=== PATIENT | female | born 1955 | race Caucasian/White ===

== ENCOUNTER 2016-06-19 21:51 | Emergency (ER) | payer OTHER ==
[~2016-06-19 21:51] MED LIST: ALDACTONE50 MG PO; APAP/HYDROCODON1 T13 PO; ASPIRIN325 MG PO; ATIVAN0.5 M1 PO; BG MC; CHL4 PO; CHOLECALCIFEROL; CLOPIDOGREL75 M1 PO; COL100 PO; D-20001 TAB PO; ECO81 PO; ELA10 PO; FER300 PO; FERROUS SULFAT325 M2 PO; FLAGYL500 MG PO; FLOVENT HF0.11 MG/A1 IH; FUROSEMIDE20 MG PO; GLU500 PO; HYD25 PO; IBUPROFEN; IBUPROFEN400 MG PO; IPRATROPIUM BROM3 M2 HHN; LAC PO; LACTULOSE10 GM/152 PO; LEVAQUIN250 MG PO; LEVAQUIN750 MG PO; LEVAQUIN750 MG/150 IV; LIPI10 PO; LIPITOR80 MG PO; LISINOPRIL/HCTZ1 TA2 PO; LISINOPRIL10 MG PO; LOP50 PO; LORAZEPAM0.5 MG PO; METFORMIN HCL500 MG PO; METHOCARBAMOL750 MG PO; METOPROLOL SUCC25 M1 PO; METOPROLOL TART25 M1 PO; MOTRIN800 MG PO; NAPROXEN SODIU PO; NATURAL IRON65 MG; NEU300 PO; NITROGLYCERIN; NITROSTAT0.4 MG SL; NORCO1 TA2 PO; OMEPRAZOLE DR20 M1 PO; OMEPRAZOLE40 M1 PO; PANTOPRAZOLE SO40 M1 PO; PEGASYS180 MCG/0. MR; PLA75 PO; POTASSIUM CHLO10 MEQ PO; PREDNISONE20 MG PO; PRILOSEC20 MG PO; PROMETHAZI6.25 MG/5 PO; PYR100 PO; RIBAVIRIN200 M1 PO; ROBAXIN-750750 MG PO; SING10 PO; SINGULAIR10 MG PO; SPIRONOLACTONE50 MG PO; THERAGRAN-M1 TA4 PO; TUSSIONEX PENN480 ML; VIT D; VITAMIN C500 M4 PO; VITAMIN D32000 I2 PO; ZEGERID 20 MG-11 CAP PO; ZES10 PO; ZESTRIL5 MG PO; ZOS2I IV; [UNRECOGNIZED DRUG - OTHER] PO
[2016-06-20 00:27] LABS: UA SPECIFIC GRAVITY <=1.005 (1.005-1.035); microscopic required? YES; urine erythrocyte NEGATIVE (NEGATIVE)
[2016-06-20 00:43] LABS: CALCIUM 8.7 mg/dL (8.5-10.1); CARBON DIOXIDE 31.1 mmol/L (21-32); CREATININE SERUM 1.4 mg/dL (0.6-1.0); POTASSIUM SERUM 3.7 mmol/L (3.5-5.1)
[2016-06-20 00:47] LABS: ALBUMIN 3.6 g/dL (3.4-5.0); BILIRUBIN TOTAL 0.5 mg/dL (0.20-1.00); TOTAL PROTEIN, SERUM 8.1 g/dL (6.4-8.2)
[2016-06-20 02:08] LABS: BASOPHIL % 0.5 % (0-2); PLATELET COUNT 194 x10^3mcL (130-400)
[2016-06-20 02:09] LABS: RED CELL DISTRIBUTION WIDTH 19.1 % (11.5-14.5)
[2016-06-20 03:01] VITALS: BP 102/71
== END 2016-06-20 03:01 | disposition home or self-care (01) ==
LOC: ED 21:51
PROVIDERS: Emergency Medicine
DX: J06.9 Acute upper respiratory infection, unspecified (principal); M79.1 Myalgia; J44.9 Chronic obstructive pulmonary disease, unspecified; I10 Essential (primary) hypertension
CPT/HCPCS: J0696

== ENCOUNTER 2016-07-02 15:57 | Emergency (ER) | payer OTHER ==
[~2016-07-02] VITALS: Ht 154.9 cm; Wt 76.8 kg
[2016-07-02 17:15] VITALS: BP 131/78
== END 2016-07-02 17:15 | disposition home or self-care (01) ==
LOC: ED 15:57
DX: M25.561 Pain in right knee (principal); J45.909 Unspecified asthma, uncomplicated; K21.9 Gastro-esophageal reflux disease without esophagitis; J44.9 Chronic obstructive pulmonary disease, unspecified; N18.9 Chronic kidney disease, unspecified; Z88.5 Allergy status to narcotic agent; Z88.6 Allergy status to analgesic agent

== ENCOUNTER → 2016-07-09 | Outpatient (CLI) | payer OTHER | END | disposition home or self-care (01) | LOC: CT 10:30 | PROC: BW211ZZ Computerized Tomography (CT Scan) of Abdomen and Pelvis using Low Osmolar Contrast (ICD-10-PCS; principal; 2016-07-09) | DX: K25.9 Gastric ulcer, unspecified as acute or chronic, without hemorrhage or perforation (principal); K29.50 Unspecified chronic gastritis without bleeding | CPT/HCPCS: A9698; Q9967 ==

== ENCOUNTER 2016-07-29 13:38 | Inpatient (IN) | payer OTHER ==
[~2016-07-29] VITALS: Ht 154.9 cm; Wt 75.7 kg
[2016-07-29 15:23] LABS: BASOPHIL % 0.3 % (0-2); PLATELET COUNT 172 x10^3mcL (130-400)
[2016-07-29 15:26] LABS: RED CELL DISTRIBUTION WIDTH 18.1 % (11.5-14.5)
[2016-07-29 15:32] LABS: CALCIUM 9.1 mg/dL (8.5-10.1); CARBON DIOXIDE 25.6 mmol/L (21-32); CREATININE SERUM 1.5 mg/dL (0.6-1.0)
[2016-07-29 15:38] LABS: ALBUMIN 3.7 g/dL (3.4-5.0); BILIRUBIN TOTAL 0.64 mg/dL (0.20-1.00)
[2016-07-29 15:39] LABS: TOTAL PROTEIN, SERUM 8.4 g/dL (6.4-8.2)
[2016-07-29] MEDS ORDERED: GLUCOPHAGE XR500 MG PO (20:19)
[2016-07-29] MEDS ORDERED: ENALAPRIL MALE2.5 MG PO (20:20)
[2016-07-29] MEDS ORDERED: VITAMIN B121000 MCG PO (20:23)
[2016-07-29] MEDS ORDERED: CALCIUM 500 MG1 EAC1 PO (20:24)
[2016-07-29] MEDS ORDERED: PYR50 PO (20:24)
[2016-07-29 20:59] VITALS: BP 117/76
[2016-07-29 21:00] LABS: MAGNESIUM 2.2 mg/dL (1.8-2.4); PHOSPHOROUS 4.5 mg/dL (2.5-4.9)
[2016-07-29 21:02] LABS: CHOLESTEROL/HDL RATIO 1.7
[2016-07-29 21:09] LABS: FREE T4 1.14 ng/dL (0.76-1.46); FREE THYROXINE INDEX 3.9 ug/dL (1.4-4.5); T3 TOTAL 1.49 ng/mL
[2016-07-29] MEDS ORDERED: PLA75 PO (23:40)
[2016-07-29] MEDS ORDERED: ASPIRIN325 MG PO (23:41)
[2016-07-30 05:26] VITALS: BP 102/63
[2016-07-30 05:55] LABS: BASOPHIL % 0.1 % (0-2); PLATELET COUNT 165 x10^3mcL (130-400)
[2016-07-30 06:36] LABS: CALCIUM 8.8 mg/dL (8.5-10.1); CARBON DIOXIDE 27.2 mmol/L (21-32); CREATININE SERUM 1.6 mg/dL (0.6-1.0); MAGNESIUM 2.2 mg/dL (1.8-2.4)
[2016-07-30 08:00] VITALS: BP 118/72
[2016-07-30 10:00] VITALS: BP 118/72
[2016-07-30 12:04] VITALS: Ht 154.9 cm; Wt 75.7 kg
[2016-07-30 14:09] VITALS: BP 128/76
[2016-07-30] MEDS ORDERED: GABAPENTIN400 M1 PO (15:38)
[2016-07-30] MEDS ORDERED: LIPI20 PO (15:39)
[2016-07-30] MEDS ORDERED: OMEPRAZOLE20 M4 PO (15:39)
[2016-07-30] MEDS ORDERED: LEVOTHYROXIN0.025 M2 PO (15:40)
[2016-07-30] MEDS ORDERED: HCTZ/LISINOPRIL1 TAB PO (15:40)
[2016-07-30] MEDS ORDERED: NATURAL IRON65 MG PO (15:41)
[2016-07-30] MEDS ORDERED: ROBAXIN-750750 MG PO (15:41)
[2016-07-30] MEDS ORDERED: MONTELUKAST SOD10 M1 PO (15:41)
[2016-07-30 18:46] VITALS: BP 124/71
[2016-07-30 21:09] VITALS: BP 119/57
[2016-07-31 05:40] VITALS: BP 107/64
[2016-07-31 10:00] VITALS: BP 125/77
[2016-07-31 13:15] VITALS: BP 125/77
[2016-07-31 13:18] VITALS: BP 121/71
== END 2016-07-31 15:46 | disposition home or self-care (01) | DRG 243 ==
LOC: ED 13:38 → DU 19:57
PROVIDERS: Family Medicine; ADMIT Family Medicine
DX: K21.9 Gastro-esophageal reflux disease without esophagitis (principal); N17.0 Acute kidney failure with tubular necrosis; D68.69 Other thrombophilia; E11.51 Type 2 diabetes mellitus with diabetic peripheral angiopathy without gangrene; K74.60 Unspecified cirrhosis of liver; I10 Essential (primary) hypertension; J45.909 Unspecified asthma, uncomplicated; M43.17 Spondylolisthesis, lumbosacral region; E78.5 Hyperlipidemia, unspecified; I25.10 Atherosclerotic heart disease of native coronary artery without angina pectoris; E03.9 Hypothyroidism, unspecified; I25.2 Old myocardial infarction; Z68.30 Body mass index [BMI] 30.0-30.9, adult; Z87.891 Personal history of nicotine dependence; Z79.84 Long term (current) use of oral hypoglycemic drugs; E78.00 Pure hypercholesterolemia, unspecified; Z90.49 Acquired absence of other specified parts of digestive tract; Z88.6 Allergy status to analgesic agent; Z88.8 Allergy status to other drugs, medicaments and biological substances; Z82.49 Family history of ischemic heart disease and other diseases of the circulatory system; Z83.3 Family history of diabetes mellitus; Z83.79 Family history of other diseases of the digestive system; D64.9 Anemia, unspecified; M48.07 Spinal stenosis, lumbosacral region
CPT/HCPCS: 83880; 84439; J2270; J2405; J7030; J7613; Q0092; Q0163

== ENCOUNTER 2017-01-08 11:37 | Emergency (ER) | payer OTHER ==
[~2017-01-08] VITALS: Ht 154.9 cm; Wt 79.4 kg
[~2017-01-08 11:37] MED LIST changes: +CALCIUM 500 MG1 EAC1 PO; +ENALAPRIL MALE2.5 MG PO; +GABAPENTIN400 M1 PO; +GLUCOPHAGE XR500 MG PO; +HCTZ/LISINOPRIL1 TAB PO; +LEVOTHYROXIN0.025 M2 PO; +LIPI20 PO; +MONTELUKAST SOD10 M1 PO; +NATURAL IRON65 MG PO; +OMEPRAZOLE20 M4 PO; +PYR50 PO; +VITAMIN B121000 MCG PO
[2017-01-08 11:41] VITALS: BP 131/79
== END 2017-01-08 13:23 | disposition home or self-care (01) ==
LOC: ED 11:37
DX: M54.12 Radiculopathy, cervical region (principal); J44.9 Chronic obstructive pulmonary disease, unspecified; E78.00 Pure hypercholesterolemia, unspecified; I25.10 Atherosclerotic heart disease of native coronary artery without angina pectoris; K21.9 Gastro-esophageal reflux disease without esophagitis; M19.90 Unspecified osteoarthritis, unspecified site; I12.9 Hypertensive chronic kidney disease with stage 1 through stage 4 chronic kidney disease, or unspecified chronic kidney disease; E11.22 Type 2 diabetes mellitus with diabetic chronic kidney disease; N18.9 Chronic kidney disease, unspecified; B19.20 Unspecified viral hepatitis C without hepatic coma; I25.2 Old myocardial infarction; K74.60 Unspecified cirrhosis of liver; Z88.5 Allergy status to narcotic agent; Z88.6 Allergy status to analgesic agent; Z79.899 Other long term (current) drug therapy

== ENCOUNTER 2017-01-19 11:35 | Emergency (ER) | payer OTHER ==
[~2017-01-19] VITALS: Ht 154.9 cm; Wt 78.9 kg
[2017-01-19 11:56] VITALS: BP 105/74
== END 2017-01-19 12:32 | disposition home or self-care (01) ==
LOC: ED 11:35
DX: N39.0 Urinary tract infection, site not specified (principal); J44.9 Chronic obstructive pulmonary disease, unspecified; I10 Essential (primary) hypertension; E11.9 Type 2 diabetes mellitus without complications; K21.9 Gastro-esophageal reflux disease without esophagitis; E78.00 Pure hypercholesterolemia, unspecified; Z88.5 Allergy status to narcotic agent; Z88.6 Allergy status to analgesic agent

== ENCOUNTER 2017-05-24 15:27 | Inpatient (IN) | payer OTHER ==
[~2017-05-24] VITALS: Ht 154.9 cm; Wt 81.4 kg
[2017-05-24 16:26] LABS: CALCIUM 8.4 mg/dL (8.5-10.1); CARBON DIOXIDE 30.2 mmol/L (21-32); CREATININE SERUM 1.3 mg/dL (0.6-1.0); POTASSIUM SERUM 4.2 mmol/L (3.5-5.1)
[2017-05-24 16:31] LABS: ALBUMIN 3.5 g/dL (3.4-5.0); BILIRUBIN TOTAL 0.8 mg/dL (0.20-1.00); TOTAL PROTEIN, SERUM 7.7 g/dL (6.4-8.2)
[2017-05-24 16:32] LABS: microscopic required? YES; urine erythrocyte NEGATIVE (NEGATIVE)
[2017-05-24 16:34] LABS: BASOPHIL % 0.2 % (0-2); PLATELET COUNT 171 x10^3mcL (130-400)
[2017-05-24 16:36] LABS: RED CELL DISTRIBUTION WIDTH 17.2 % (11.5-14.5)
[2017-05-24 17:16] LABS: AMPHETAMINE QUAL UR NONE DETECTED (NEG <=1000)
[2017-05-24 17:20] LABS: MAGNESIUM 2.4 mg/dL (1.8-2.4); PHOSPHOROUS 3.2 mg/dL (2.5-4.9)
[2017-05-24 17:24] LABS: CHOLESTEROL/HDL RATIO 1.9
[2017-05-24 17:27] LABS: T3 TOTAL 1.57 ng/mL
[2017-05-24 17:28] LABS: FREE T4 1.11 ng/dL (0.76-1.46); FREE THYROXINE INDEX 3.3 ug/dL (1.4-4.5); T4(THYROXINE) 12.1 ug/dL (4.7-13.3)
[2017-05-24 17:59] VITALS: BP 121/102
[2017-05-24 18:05] VITALS: BP 91/59
[2017-05-24 18:11] VITALS: Ht 154.9 cm; Wt 81.4 kg
[2017-05-24 21:00] VITALS: BP 102/66
[2017-05-25 05:51] LABS: BASOPHIL % 0.3 % (0-2); PLATELET COUNT 144 x10^3mcL (130-400)
[2017-05-25 06:02] VITALS: BP 113/69
[2017-05-25 06:21] LABS: CALCIUM 8.5 mg/dL (8.5-10.1); CARBON DIOXIDE 26.7 mmol/L (21-32); CREATININE SERUM 1.3 mg/dL (0.6-1.0); MAGNESIUM 2.3 mg/dL (1.8-2.4); PHOSPHOROUS 4.1 mg/dL (2.5-4.9); POTASSIUM SERUM 4.1 mmol/L (3.5-5.1)
[2017-05-25 06:51] LABS: RED CELL DISTRIBUTION WIDTH 17.1 % (11.5-14.5)
[2017-05-25 09:19] VITALS: BP 122/72
[2017-05-25 14:00] VITALS: BP 111/71
[2017-05-25 18:32] VITALS: BP 105/64
[2017-05-25 22:37] VITALS: BP 117/74
[2017-05-26 02:52] VITALS: BP 112/72
[2017-05-26 06:31] VITALS: BP 103/70
[2017-05-26 06:37] LABS: CALCIUM 8.4 mg/dL (8.5-10.1); CARBON DIOXIDE 25.5 mmol/L (21-32); CREATININE SERUM 1.3 mg/dL (0.6-1.0); MAGNESIUM 2.2 mg/dL (1.8-2.4); PHOSPHOROUS 3.7 mg/dL (2.5-4.9); POTASSIUM SERUM 4.4 mmol/L (3.5-5.1)
[2017-05-26 06:39] LABS: BASOPHIL % 0.4 % (0-2); PLATELET COUNT 142 x10^3mcL (130-400); RED CELL DISTRIBUTION WIDTH 16.3 % (11.5-14.5)
[2017-05-26] MEDS ORDERED: LEVAQUIN750 MG PO (08:12)
[2017-05-26] MEDS ORDERED: FLA500 PO (08:12)
[2017-05-26] MEDS ORDERED: LAC PO (08:13)
[2017-05-26] MEDS ORDERED: PERCOCET1 TAB PO (08:13)
[2017-05-26 08:21] VITALS: BP 124/72
[2017-05-26 10:28] VITALS: BP 124/72
== END 2017-05-26 14:53 | disposition home or self-care (01) | DRG 243 ==
LOC: ED 15:27 → DU 16:54 → MU 05-26 14:45
PROVIDERS: Emergency Medicine; Family Medicine
DX: K21.9 Gastro-esophageal reflux disease without esophagitis (principal); N17.0 Acute kidney failure with tubular necrosis; E11.51 Type 2 diabetes mellitus with diabetic peripheral angiopathy without gangrene; I10 Essential (primary) hypertension; E78.00 Pure hypercholesterolemia, unspecified; N39.0 Urinary tract infection, site not specified; E11.65 Type 2 diabetes mellitus with hyperglycemia; I25.10 Atherosclerotic heart disease of native coronary artery without angina pectoris; D64.9 Anemia, unspecified; M51.37 Other intervertebral disc degeneration, lumbosacral region; M43.17 Spondylolisthesis, lumbosacral region; E03.9 Hypothyroidism, unspecified; Z90.49 Acquired absence of other specified parts of digestive tract; Z87.891 Personal history of nicotine dependence; I25.2 Old myocardial infarction; Z88.6 Allergy status to analgesic agent; Z88.5 Allergy status to narcotic agent; Z90.89 Acquired absence of other organs; Z90.10 Acquired absence of unspecified breast and nipple; Z83.3 Family history of diabetes mellitus; Z82.49 Family history of ischemic heart disease and other diseases of the circulatory system; Z83.79 Family history of other diseases of the digestive system
CPT/HCPCS: 82962; 83880; 84439; J0696; J1956; J3010; J3490; J7030; J7620; Q0092

== ENCOUNTER 2017-07-12 15:48 | Inpatient (IN) | payer OTHER ==
[~2017-07-12] VITALS: Ht 154.9 cm; Wt 85.4 kg
[~2017-07-12 15:48] MED LIST changes: +FLA500 PO; +PERCOCET1 TAB PO
[2017-07-12 15:51] VITALS: Ht 154.9 cm; Wt 85.4 kg
[2017-07-12 18:26] LABS: BASOPHIL % 0.2 % (0-2); PLATELET COUNT 152 x10^3mcL (130-400)
[2017-07-12 18:30] LABS: CALCIUM 8.9 mg/dL (8.5-10.1); CARBON DIOXIDE 27.6 mmol/L (21-32); CREATININE SERUM 1.3 mg/dL (0.6-1.0); POTASSIUM SERUM 3.6 mmol/L (3.5-5.1)
[2017-07-12 18:34] LABS: ALBUMIN 3.4 g/dL (3.4-5.0); BILIRUBIN TOTAL 0.81 mg/dL (0.20-1.00); TOTAL PROTEIN, SERUM 7.5 g/dL (6.4-8.2)
[2017-07-12 18:48] LABS: UA SPECIFIC GRAVITY 1.015 (1.005-1.035); microscopic required? YES; urine erythrocyte NEGATIVE (NEGATIVE)
[2017-07-12 20:50] LABS: MAGNESIUM 2.2 mg/dL (1.8-2.4); PHOSPHOROUS 2.8 mg/dL (2.5-4.9)
[2017-07-12 20:52] LABS: CHOLESTEROL/HDL RATIO 2.1
[2017-07-12 20:53] VITALS: BP 122/68
[2017-07-12 21:01] LABS: T3 TOTAL 1.74 ng/mL
[2017-07-12 21:15] LABS: FREE T4 1.03 ng/dL (0.76-1.46); FREE THYROXINE INDEX 3.1 ug/dL (1.4-4.5); T4(THYROXINE) 10.9 ug/dL (4.7-13.3)
[2017-07-13 05:20] VITALS: BP 101/60
[2017-07-13 06:26] LABS: CALCIUM 7.8 mg/dL (8.5-10.1); CARBON DIOXIDE 26.1 mmol/L (21-32); CREATININE SERUM 1.3 mg/dL (0.6-1.0); MAGNESIUM 1.9 mg/dL (1.8-2.4); PHOSPHOROUS 3.3 mg/dL (2.5-4.9); POTASSIUM SERUM 4.4 mmol/L (3.5-5.1)
[2017-07-13 06:57] LABS: BASOPHIL % 0.3 % (0-2); PLATELET COUNT 123 x10^3mcL (130-400); RED CELL DISTRIBUTION WIDTH 17.4 % (11.5-14.5)
[2017-07-13 08:35] VITALS: BP 106/65
[2017-07-13 13:07] VITALS: BP 104/61
[2017-07-13 16:34] VITALS: BP 101/63
[2017-07-13 20:49] VITALS: BP 127/72
[2017-07-14 05:58] VITALS: BP 136/78
[2017-07-14 06:20] LABS: BASOPHIL % 0.3 % (0-2)
[2017-07-14 06:32] LABS: PLATELET COUNT 123 x10^3mcL (130-400); RED CELL DISTRIBUTION WIDTH 17.2 % (11.5-14.5)
[2017-07-14 06:51] LABS: CALCIUM 8.2 mg/dL (8.5-10.1); CREATININE SERUM 1.1 mg/dL (0.6-1.0); POTASSIUM SERUM 3.9 mmol/L (3.5-5.1)
[2017-07-14 08:15] VITALS: BP 144/77
[2017-07-14 17:38] VITALS: BP 136/78
[2017-07-14 21:35] VITALS: BP 136/84
[2017-07-15 05:42] VITALS: BP 111/57
[2017-07-15 08:49] LABS: BASOPHIL % 0.2 % (0-2)
[2017-07-15 08:58] LABS: PLATELET COUNT 124 x10^3mcL (130-400); RED CELL DISTRIBUTION WIDTH 16.7 % (11.5-14.5)
[2017-07-15 09:06] LABS: CALCIUM 8.4 mg/dL (8.5-10.1); CARBON DIOXIDE 24.7 mmol/L (21-32); CREATININE SERUM 1.2 mg/dL (0.6-1.0); PHOSPHOROUS 3.3 mg/dL (2.5-4.9); POTASSIUM SERUM 3.6 mmol/L (3.5-5.1)
[2017-07-15 10:05] VITALS: BP 132/68
[2017-07-15 16:48] VITALS: BP 127/70
[2017-07-15 21:06] VITALS: BP 153/82
[2017-07-16 05:45] VITALS: BP 137/78
[2017-07-16 06:44] LABS: BASOPHIL % 0.3 % (0-2); PLATELET COUNT 134 x10^3mcL (130-400)
[2017-07-16 06:58] LABS: RED CELL DISTRIBUTION WIDTH 17.7 % (11.5-14.5)
[2017-07-16 06:59] LABS: CALCIUM 8.8 mg/dL (8.5-10.1); CARBON DIOXIDE 27.1 mmol/L (21-32); CREATININE SERUM 1.2 mg/dL (0.6-1.0); MAGNESIUM 2.1 mg/dL (1.8-2.4); PHOSPHOROUS 3.9 mg/dL (2.5-4.9); POTASSIUM SERUM 3.8 mmol/L (3.5-5.1)
[2017-07-16 08:26] VITALS: BP 139/75
[2017-07-16] MEDS ORDERED: COL100 PO (12:09)
[2017-07-16] MEDS ORDERED: LAC PO (12:10)
[2017-07-16] MEDS ORDERED: LEVAQUIN750 MG PO (12:11)
[2017-07-16] MEDS ORDERED: FLA500 PO (12:12)
[2017-07-16 13:49] VITALS: BP_SYST 1
== END 2017-07-16 15:18 | disposition home or self-care (01) | DRG 223 ==
LOC: ED 15:48 → MU 20:03 → DU 20:03 → MU 07-13 11:37
PROVIDERS: Emergency Medicine; Family Medicine
PROC: 0D9N3ZZ Drainage of Sigmoid Colon, Percutaneous Approach (ICD-10-PCS; principal; 2017-07-16)
DX: K57.20 Diverticulitis of large intestine with perforation and abscess without bleeding (principal); N17.0 Acute kidney failure with tubular necrosis; E11.22 Type 2 diabetes mellitus with diabetic chronic kidney disease; K74.60 Unspecified cirrhosis of liver; I25.2 Old myocardial infarction; I25.10 Atherosclerotic heart disease of native coronary artery without angina pectoris; E78.00 Pure hypercholesterolemia, unspecified; I12.9 Hypertensive chronic kidney disease with stage 1 through stage 4 chronic kidney disease, or unspecified chronic kidney disease; N18.9 Chronic kidney disease, unspecified; B19.20 Unspecified viral hepatitis C without hepatic coma; K21.9 Gastro-esophageal reflux disease without esophagitis; E11.65 Type 2 diabetes mellitus with hyperglycemia; F17.210 Nicotine dependence, cigarettes, uncomplicated; J44.9 Chronic obstructive pulmonary disease, unspecified; Z90.49 Acquired absence of other specified parts of digestive tract; Z83.3 Family history of diabetes mellitus; Z82.49 Family history of ischemic heart disease and other diseases of the circulatory system; Z83.79 Family history of other diseases of the digestive system; Z56.0 Unemployment, unspecified
CPT/HCPCS: 82962; 83880; 84439; J0696; J2270; J2405; J2543; J3490; J7030; J7050; Q0092

== ENCOUNTER 2017-07-23 15:53 | Emergency (ER) | payer OTHER ==
[~2017-07-23] VITALS: Ht 154.9 cm; Wt 77.6 kg
[2017-07-23 16:41] LABS: BASOPHIL % 0.4 % (0-2); PLATELET COUNT 174 x10^3mcL (130-400)
[2017-07-23 16:49] LABS: CALCIUM 8.8 mg/dL (8.5-10.1); CARBON DIOXIDE 24.5 mmol/L (21-32); CREATININE SERUM 1.3 mg/dL (0.6-1.0); POTASSIUM SERUM 3.5 mmol/L (3.5-5.1)
[2017-07-23 16:54] LABS: ALBUMIN 3.6 g/dL (3.4-5.0); BILIRUBIN TOTAL 0.5 mg/dL (0.20-1.00); TOTAL PROTEIN, SERUM 7.7 g/dL (6.4-8.2)
[2017-07-23 17:12] LABS: RED CELL DISTRIBUTION WIDTH 17.3 % (11.5-14.5)
[2017-07-23 17:16] LABS: UA SPECIFIC GRAVITY 1.015 (1.005-1.035); microscopic required? YES; urine erythrocyte NEGATIVE (NEGATIVE)
[2017-07-23 18:58] VITALS: BP 111/80
== END 2017-07-23 18:58 | disposition home or self-care (01) ==
LOC: ED 15:53
PROVIDERS: Emergency Medicine
DX: K57.92 Diverticulitis of intestine, part unspecified, without perforation or abscess without bleeding (principal); J44.9 Chronic obstructive pulmonary disease, unspecified; J45.909 Unspecified asthma, uncomplicated; I10 Essential (primary) hypertension; E11.9 Type 2 diabetes mellitus without complications; E78.00 Pure hypercholesterolemia, unspecified; K74.60 Unspecified cirrhosis of liver; Z90.710 Acquired absence of both cervix and uterus; Z90.49 Acquired absence of other specified parts of digestive tract; Z90.89 Acquired absence of other organs
CPT/HCPCS: J1885; J2270; J2405; J7030

== ENCOUNTER 2017-10-04 11:46 | Emergency (ER) | payer OTHER ==
[~2017-10-04] VITALS: Ht 154.9 cm; Wt 75.7 kg
[2017-10-04 11:55] VITALS: Ht 154.9 cm; Wt 75.7 kg
[2017-10-04 13:13] LABS: microscopic required? NO
[2017-10-04 13:41] LABS: urine erythrocyte NEGATIVE (NEGATIVE)
[2017-10-04 13:53] LABS: T3 TOTAL 1.5 ng/mL
[2017-10-04 14:00] LABS: BASOPHIL % 0.3 % (0-2); PLATELET COUNT 168 x10^3mcL (130-400)
[2017-10-04 14:03] LABS: CARBON DIOXIDE 24.7 mmol/L (21-32); CREATININE SERUM 1.1 mg/dL (0.6-1.0); POTASSIUM SERUM 4.2 mmol/L (3.5-5.1)
[2017-10-04 14:07] LABS: ALBUMIN 3.6 g/dL (3.4-5.0); BILIRUBIN TOTAL 0.7 mg/dL (0.20-1.00); CHOLESTEROL/HDL RATIO 1.9; TOTAL PROTEIN, SERUM 8.1 g/dL (6.4-8.2)
[2017-10-04 14:15] LABS: RED CELL DISTRIBUTION WIDTH 17.2 % (11.5-14.5)
[2017-10-04 14:26] LABS: FREE T4 1.41 ng/dL (0.76-1.46)
[2017-10-04 14:27] LABS: FREE THYROXINE INDEX 3.9 ug/dL (1.4-4.5); T4(THYROXINE) 13.8 ug/dL (4.7-13.3)
[2017-10-04 15:48] VITALS: BP 116/77
== END 2017-10-04 15:48 | disposition home or self-care (01) ==
LOC: ED 11:46
PROVIDERS: Specialist
DX: R10.30 Lower abdominal pain, unspecified (principal); R74.8 Abnormal levels of other serum enzymes; J44.9 Chronic obstructive pulmonary disease, unspecified; I10 Essential (primary) hypertension; E11.9 Type 2 diabetes mellitus without complications; Z87.19 Personal history of other diseases of the digestive system; K21.9 Gastro-esophageal reflux disease without esophagitis; E78.00 Pure hypercholesterolemia, unspecified; Z87.891 Personal history of nicotine dependence; Z90.89 Acquired absence of other organs; Z90.49 Acquired absence of other specified parts of digestive tract
CPT/HCPCS: 83880; 84439; J1885; J7030; Q0092

== ENCOUNTER 2018-04-11 18:55 | Emergency (ER) | payer OTHER ==
[~2018-04-11] VITALS: Ht 154.9 cm; Wt 74.8 kg
[2018-04-11 19:10] VITALS: Ht 154.9 cm; Wt 74.8 kg
[2018-04-11 22:43] VITALS: BP 115/95
== END 2018-04-11 22:43 | disposition home or self-care (01) ==
LOC: ED 18:55
DX: J20.9 Acute bronchitis, unspecified (principal); J44.0 Chronic obstructive pulmonary disease with (acute) lower respiratory infection; J45.909 Unspecified asthma, uncomplicated; I10 Essential (primary) hypertension; E11.9 Type 2 diabetes mellitus without complications; E78.00 Pure hypercholesterolemia, unspecified; M19.90 Unspecified osteoarthritis, unspecified site; Z90.89 Acquired absence of other organs; Z90.710 Acquired absence of both cervix and uterus

== ENCOUNTER 2018-05-27 10:57 | Emergency (ER) | payer OTHER ==
[~2018-05-27] VITALS: Ht 154.9 cm; Wt 75.9 kg
[2018-05-27 11:02] VITALS: Ht 154.9 cm; Wt 75.9 kg
[2018-05-27 11:58] LABS: UA SPECIFIC GRAVITY 1.025 (1.005-1.035); microscopic required? YES; urine erythrocyte 1+ (NEGATIVE)
[2018-05-27 13:52] VITALS: BP 128/93
== END 2018-05-27 13:52 | disposition home or self-care (01) ==
LOC: ED 10:57
PROVIDERS: Emergency Medicine
DX: N39.0 Urinary tract infection, site not specified (principal); R10.31 Right lower quadrant pain; R10.32 Left lower quadrant pain; J45.909 Unspecified asthma, uncomplicated; I10 Essential (primary) hypertension; E11.9 Type 2 diabetes mellitus without complications; K57.92 Diverticulitis of intestine, part unspecified, without perforation or abscess without bleeding; E78.00 Pure hypercholesterolemia, unspecified; I25.2 Old myocardial infarction
CPT/HCPCS: J1885

== ENCOUNTER 2018-07-19 13:24 | Emergency (ER) | payer OTHER ==
[~2018-07-19] VITALS: Ht 157.5 cm; Wt 78.0 kg
[2018-07-19 13:28] VITALS: BP 125/77; Ht 157.5 cm; Wt 78.0 kg
== END 2018-07-19 16:37 | disposition home or self-care (01) ==
LOC: ED 13:24
DX: J20.9 Acute bronchitis, unspecified (principal); J44.9 Chronic obstructive pulmonary disease, unspecified; I10 Essential (primary) hypertension; E11.9 Type 2 diabetes mellitus without complications; E78.00 Pure hypercholesterolemia, unspecified; I25.2 Old myocardial infarction; Z90.89 Acquired absence of other organs; Z90.49 Acquired absence of other specified parts of digestive tract; Z90.710 Acquired absence of both cervix and uterus

== ENCOUNTER 2019-01-29 21:01 | Inpatient (IN) | payer OTHER ==
[~2019-01-29] VITALS: Ht 154.9 cm; Wt 70.3 kg
[2019-01-29 21:29] VITALS: Ht 154.9 cm; Wt 70.3 kg
--- NOTE | 2019-01-29 22:34 | NUR ---
PT PRESENTS TO ED FOR EVAL OF INTERMITTENT BLQ PAIN X6 MONTHS; STS WAS SEEN HERE X6 MONTHS AGO FOR SAME COMPLAINT WITH INCONCLUSIVE RESULTS. PT STS PAIN HAS BEEN EXACERBATED X2 DAYS; DESCRIBES BURNING AND RADIATES TO BILATERAL FLANKS AND "TAILBONE". ABDOMEN SOFT/NONTENDER/NON TTP; BOWEL SOUNDS ACTIVE X4 QUADRANTS. RESP E/U, APPEARS IN NO ACUTE DISTRESS. VSS. MSE COMPLETED BY DR LYLES.
--- NOTE | 2019-01-29 22:54 | NUR ---
NS BOLUS INFUSING AND PT MEDICATED ORDERED; SEE EMAR. PT ATTEMPTED TO PROVIDE URINE SAMPLE BUT UNABLE, VERBALIZED UNDERSTANDING TO TRY AGAIN LATER.
[2019-01-29 23:18] LABS: CALCIUM 9.2 mg/dL (8.5-10.1); CARBON DIOXIDE 27.6 mmol/L (21-32); CREATININE SERUM 1.2 mg/dL (0.6-1.0); POTASSIUM SERUM 3.7 mmol/L (3.5-5.1)
[2019-01-29 23:19] LABS: BASOPHIL % 0.2 % (0-2); PLATELET COUNT 179 x10^3mcL (130-400); RED CELL DISTRIBUTION WIDTH 15.9 % (11.5-14.5)
[2019-01-29 23:23] LABS: ALBUMIN 3.5 g/dL (3.4-5.0); BILIRUBIN TOTAL 0.8 mg/dL (0.20-1.00); TOTAL PROTEIN, SERUM 8.2 g/dL (6.4-8.2)
--- NOTE | 2019-01-29 23:35 | NUR ---
PT REPORTS PAIN DECREASED TO 6/10 AT THIS TIME.
--- NOTE | 2019-01-30 01:15 | NUR ---
PT C/O NAUSEA AT THIS TIME; WILL MEDICATE ORDERED.
--- NOTE | 2019-01-30 02:00 | NUR ---
PT RESTING IN GURNEY; RESP E/U, APPEARS IN NO DISTRESS. VSS.
[2019-01-30] MEDS ORDERED: TRADJENTA5 M1 PO (02:45)
[2019-01-30 03:14] VITALS: BP 143/73
--- NOTE | 2019-01-30 03:35 | NUR ---
ADMITTED A 63 YEARS OLD FEMALE AWAKE, ALERT AND ORIENTED CAME IN VIA GURNEY ACCOMPANIED BY ER STAFF WITH C/O BILATERAL QUADRANT PAIN RADIATING TO BACK. MEDICATED IN ER WITH MORPHINE 4MG . PATIENT DENIES PAIN AT THIS TIME. KEPT IN COMFORT, ORIENTED TO ROOM AND DEVICES. IV TO RAC INTACT AND INFUSING WELL. WITH ADMISSION ORDERS AND CARRIED OUT. WILL CONTINUE TO MONITOR. CALL LIGHT WITHIN REACH.
--- NOTE | 2019-01-30 04:10 | NUR ---
VOIDED SPECIMEN COLLECTED FOR UA, SENT TO LAB.
[2019-01-30 04:12] LABS: MAGNESIUM 1.9 mg/dL (1.8-2.4); PHOSPHOROUS 3.5 mg/dL (2.5-4.9)
[2019-01-30 04:14] LABS: T3 TOTAL 2.31 ng/mL
[2019-01-30 04:17] LABS: CHOLESTEROL/HDL RATIO 2.9
[2019-01-30 04:23] LABS: FREE T4 1.1 ng/dL (0.76-1.46); FREE THYROXINE INDEX 3.7 ug/dL (1.4-4.5); T4(THYROXINE) 14.1 ug/dL (4.7-13.3)
[2019-01-30 05:03] LABS: microscopic required? YES; urine erythrocyte TRACE (NEGATIVE)
--- NOTE | 2019-01-30 05:09 | NUR ---
SLEPT FAIRLY SINCE PATIENT ARRIVED TO FLOOR, DENIES PAIN AND DISCOMFORT. ALL NEEDS ATTENDED.
[2019-01-30 06:47] LABS: BASOPHIL % 0.2 % (0-2); PLATELET COUNT 142 x10^3mcL (130-400)
[2019-01-30 07:07] LABS: CALCIUM 7.9 mg/dL (8.5-10.1); CARBON DIOXIDE 29.1 mmol/L (21-32); CREATININE SERUM 1.1 mg/dL (0.6-1.0); MAGNESIUM 1.9 mg/dL (1.8-2.4); PHOSPHOROUS 3.5 mg/dL (2.5-4.9); POTASSIUM SERUM 3.3 mmol/L (3.5-5.1)
[2019-01-30 07:37] LABS: RED CELL DISTRIBUTION WIDTH 16.3 % (11.5-14.5)
[2019-01-30 08:56] VITALS: BP 124/53
--- NOTE | 2019-01-30 11:07 | NUR ---
PATIENT REPORTS PAIN TO LT SIDE ABDOMEN 08/23, REQUESTING FOR RELIEF. NORCO GIVEN. WILL CONT TO MONITOR.
[2019-01-30 11:41] VITALS: BP 113/57
--- NOTE | 2019-01-30 12:15 | NUR ---
DR OSWALD WAS AT BEDSIDE, PER DR OSWALD NO SURGICAL INTERVENTION AT THIS TIME. CONTINUE PATIENT ON NPO.
[2019-01-30 16:26] VITALS: BP 116/74
--- NOTE | 2019-01-30 16:45 | NUR ---
DR TALLEY (SURGEON) AT BEDSIDE FOR SECOND OPINION, NO SURGICAL INTERVENTION AT THIS TIME. CONTINUING IV ABX AND NPO STATUS, BUT OKAY TO GIVE ICE CHIPS PER DR TALLEY.
[2019-01-30 20:49] VITALS: BP 127/74
--- NOTE | 2019-01-31 01:28 | NUR ---
APPEAR TO BE SLEEPING THIS TIME, NO INDICATION OF PAIN AND DISCOMFORT NOTED. WILL CONTINUE TO MONITOR.
--- NOTE | 2019-01-31 05:26 | NUR ---
SLEPT AT LONG INTERVALS, DENIES PAIN AND DISCOMFORT THE ENTIRE SHIFT. ALL NEEDS ATTENDED. NO SIGNIFICANT CHANGES IN CONDITION NOTED.
[2019-01-31 05:53] VITALS: BP 122/65
[2019-01-31 06:34] LABS: BASOPHIL % 0.2 % (0-2)
[2019-01-31 06:54] LABS: CALCIUM 8.1 mg/dL (8.5-10.1); CARBON DIOXIDE 26.7 mmol/L (21-32); CREATININE SERUM 1.3 mg/dL (0.6-1.0); PHOSPHOROUS 3.4 mg/dL (2.5-4.9); POTASSIUM SERUM 3.6 mmol/L (3.5-5.1)
[2019-01-31 06:59] LABS: PLATELET COUNT 126 x10^3mcL (130-400); RED CELL DISTRIBUTION WIDTH 15.7 % (11.5-14.5)
--- NOTE | 2019-01-31 07:15 | NUR ---
PT IS AAOX4. LUNG SOUNDS CTA. ON R/A. NO COUGH OR SOB. NORMAL S1S2 NOTED. ABDOMEN SOFT, TENDER UPON PALPATION, NONDISTENDED. BOWEL SOUNDS ACTIVE X4. DENIES N/V AT THIS TIME. SKIN CDI. NO EDEMA. IVF RUNNING TO RAC. SITE WNL. NO S/S OF INFECTION OR INFILTRATION. PT DENIES PAIN AT THIS TIME. CALL LIGHT WITHIN REACH.
[2019-01-31 07:16] VITALS: BP 129/68
--- NOTE | 2019-01-31 07:46 | NUR ---
NORCO PO GIVEN FOR SHARP ABDOMINAL PAIN 09/23. PT REPOSITIONED FOR COMFORT. RESP EVEN AND UNLABORED. ZACH SAGE NP MET WITH PT. PT IS TO REMAIN NPO, POSSIBLE ADVANCE TO CLEAR LIQUID. PT WILL NO HAVE SURGERY. PT WILL BE TREATED FOR A FEW DAYS IN THE HOSPITAL WITH IVF AND ANTIBIOTIC TX. PT AGREED WITH POC.
--- NOTE | 2019-01-31 09:49 | NUR ---
SPOKE WITH DR. МАРИЯ LOO WHO STATED THE PT MAY DISCHARGE TODAY. THE PT HAS RX TO BE GIVEN TO HER FOR PERCOCET AND KEFLEX. PT WAS EDUCATED ON PERRY DRAIN, HOW TO DRAIN AND RECORD FLUID, S/S OF COMPLICATIONS AND TO REPORT COMPLICATIONS TO DR. LOO. PT VEBALIZED UNDERSTANDING. PT CBC WAS HELD THIS MORNING. DR. LOO STATED PT MAY HAVE BLOOD DRAW TO EITHER ARM, THAT BOTH ARMS ARE NOT RESTRICTED. PT MADE AWARE.
--- NOTE | 2019-01-31 09:56 | NUR ---
B/P 139/75, HR 75. SCHEDULED MEDS GIVEN AND TOLERATED WELL. EXTRA FLUID GIVEN. PT DENIES PAIN AT THIS TIME. PT IV CATH PULLED OUT INTACT. SITE COVERED WITH CDI DRESSING. NO S/S OF INFECTION NOTED. RESP EVEN AND UNLABORED. NO DISTRESS NOTED. CALL LIGHT WITHIN REACH.
--- NOTE | 2019-01-31 10:15 | NUR ---
IV CATH 22 GAUGE PLACED TO LFA ON FIRST ATTEMPT. COVERED WITH CDI OCCLUSIVE DRESSING. PT TOLERATED PROCEDURE WELL.
--- NOTE | 2019-01-31 10:27 | NUR ---
NEW IV CATH 22G STARTED TO LFA, SITE COVERED WITH CDI OCCLUSIVE DRESSING. PT TOLERATED PROCEDURE WELL. ZOFRAN IVP GIVEN FOR NAUSEA. PT DENIES PAIN. CALL LIGHT WITHIN REACH. BED ON LOWEST POSITION. CONTACT PRECATIONS OBSERVED.
[2019-01-31 11:40] VITALS: BP 123/66
--- NOTE | 2019-01-31 12:40 | NUR ---
BS 107, NO INSULIN INDICATED PER RISS.
--- NOTE | 2019-01-31 13:02 | NUR ---
DR. OSWALD MET WITH PT AND DISCUSSED POC. PT IS TO ADVANCE TO FULL LIQUID DIET AND MAINTAIN IV ANTIBIOTIC TX. ONCE DIET IS TOLERATED PT WILL MOST LIKELY D/C TOMMOROW. PT AGREED WITH POC.
[2019-01-31 17:17] VITALS: BP 122/66
--- NOTE | 2019-01-31 18:04 | NUR ---
SCHEDULED MED GIVEN AND TOLERATED WELL. PT DENIES PAIN AND DISCOMFORT. NO C/O N/V. RESP EVEN AND UNLABORED. NO DISTRESS NOTED. CALL LIGHT WITHIN REACH.
--- NOTE | 2019-01-31 18:23 | NUR ---
PT IS AAOX4. NO DISTRESS NOTED. DENIES PAIN AT THIS TIME. IVF RUNNING TO LFA, SITE WNL. NO S/S OF INFECTION OR INFILTRATION. CALL LIGHT WITHIN REACH. BED IN LOWEST POSTION. WILL ENDORSE ALL CARE TO NOC RN.
--- NOTE | 2019-01-31 19:35 | NUR ---
RECEIVED PT FROM DAY SHIFT RN. PT AAOX4 DENIES RODRIGUEZ/DIZZINESS. BREATHING EVEN AND UNLABORED, ON RA WITH NO SOB NOTED. IV PATENT. PT AMB WITH BRP. PT DENEIS ANY CHEST PAIN/PRESSURE. NO ACUTE DISTRESS NOTED. CONTACT ISOLATION. CALL BUTTON WITHIN REACH. SAFETY PRECAUTIONS IN PLACE. WILL CONTINUE TO MONITOR.
[2019-01-31 20:53] VITALS: BP 139/79
--- NOTE | 2019-02-01 00:37 | NUR ---
PT REQUESTING FOR SLEEPING MEDICATION. MEDICATED PER EMAR. CALL BUTTON WITHIN REACH. SAFETY PRECAUTIONS IN PLACE. WILL CONTINUE TO MONITOR.
[2019-02-01 05:30] VITALS: BP 123/67
--- NOTE | 2019-02-01 06:26 | NUR ---
PT SLEPT MOST OF THE NIGHT WITH NO SIGNS OF DISTRESS NOTED. IV PATENT, INFUSING WELL WITH NO SIGNS OF DISTRESS NOTED. MEDICATED PER EMAR. PT DENIES ANY PAIN. PT AMBULATORY WITH BRP. NO ACUTE DISTRESS NOTED. CALL BUTTON WITHIN REACH. SAFETY PRECAUTIONS IN PLACE. WILL CONTINUE TO MONITOR AND ENDORSE CARE TO DAY SHIFT RN.
[2019-02-01 06:50] LABS: BASOPHIL % 0.2 % (0-2)
[2019-02-01 07:11] LABS: CALCIUM 8.4 mg/dL (8.5-10.1); CARBON DIOXIDE 25.9 mmol/L (21-32); CREATININE SERUM 1.3 mg/dL (0.6-1.0)
[2019-02-01 07:26] LABS: PLATELET COUNT 127 x10^3mcL (130-400); RED CELL DISTRIBUTION WIDTH 15.9 % (11.5-14.5)
--- NOTE | 2019-02-01 07:39 | NUR ---
PT RESTING, BREATHING EVEN AND UNLABORED ON RA WITH NO SOB NOTED. NO SIGNS OF DISTRESS NOTED. ENDORSED CARE TO DAY SHIFT RN, ALL QUESTIONS ADDRESSED.
--- NOTE | 2019-02-01 07:46 | NUR ---
RECEIVED HAND OFF REPORT FROM NIGHT NURSE. PATIENT RESTING SOUNDLY WITH EYES CLOSED. BREAHTING REGULAR AND UNLABORED. NO RESP DISTRESS NOTED, CALL LIGHT WITHIN REACH
--- NOTE | 2019-02-01 08:00 | NUR ---
PATIENT AWAKE AND ALERT AT THIS TIME. REPORTING THAT SHE IS TOLLERATING DIET WELL. LAST BOWEL MOVEMENT WAS DIARRHEA. NO COMPLAINTS A TTHIS TIME,. STATING THAT SURGEON TOLD HER SHE MIGHT BE ABLE TO GO HOME TODAY. ZACH MCKEON TO SEE PATIENT FOR ROUNDS. PATIENT UP OUT OF BED FOR RESTROOM
[2019-02-01 08:42] VITALS: BP 143/82
--- NOTE | 2019-02-01 13:26 | NUR ---
ABRAN OUT OF BED WALKING IN UNIT. NO COMPLAINTS OF PAIN
[2019-02-01 13:39] VITALS: BP 147/83
[2019-02-01 16:56] VITALS: BP 142/74
[2019-02-01 21:08] VITALS: BP 149/83
--- NOTE | 2019-02-01 21:36 | NUR ---
PT REPORTED ABD PAIN. NORCO GIVEN PER EMAR. CALL BUTTON WITHIN REACH. SAFETY PRECAUTIONS IN PLACE. WILL MONITOR.
--- NOTE | 2019-02-02 02:00 | NUR ---
ROUNDS MADE. PT RESTING. BREATHING EVEN AND UNLABORED ON RA WITH NO SOB NOTED. NO SIGNS OF ACUTE DISTRESS NOTED. CALL BUTTON WITHIN REACH. SAFETY PRECAUTIONS IN PLACE. WILL CONTINUE TO MONITOR.
[2019-02-02 05:40] VITALS: BP 126/74
[2019-02-02 06:46] LABS: BASOPHIL % 0.3 % (0-2)
--- NOTE | 2019-02-02 07:00 | NUR ---
RECEIVED REPORT FROM CORPORATE REAL ESTATE MANAGER NURSE PATIENT LYING IN BED WITH EYES CLOSED. A&O X4, NO S/S OF ANY RESPIRATORY DISTRESS CHEST RISE EQUAL AND UNLABORED. IV ON RFA PATENT AND INTACT. ABD SOFT AND FLAT PATIENT DENIES ANY PAIN AT THIS TIME. ASSESSMENT COMPLETE AND DOCUMENTED. ALL QUESTIONS AND CONCERNS ADDRESSED AT THIS TIME. BED IN LOWEST POSITION CALL LIGHT WITHIN REACH. WILL CONTINUE TO MONITOR.
[2019-02-02 07:09] LABS: PLATELET COUNT 128 x10^3mcL (130-400); RED CELL DISTRIBUTION WIDTH 16.1 % (11.5-14.5)
[2019-02-02 07:20] LABS: CALCIUM 8.6 mg/dL (8.5-10.1); CARBON DIOXIDE 23.2 mmol/L (21-32); CREATININE SERUM 1.3 mg/dL (0.6-1.0); POTASSIUM SERUM 3.3 mmol/L (3.5-5.1)
--- NOTE | 2019-02-02 07:32 | NUR ---
PT RESTING. BREATHING EVEN AND UNLABORED ON RA WITH NO SOB NOTED. NO SIGNS OF DISTRESS NOTED. CALL BUTTON WITHIN REACH. SAFETY PRECAUTIONS IN PLACE. ENDORSED CARE TO DAY SHIFT RN, ALL QUESTIONS ADDRESSED.
[2019-02-02] MEDS ORDERED: CIPRO500 MG PO (08:43)
[2019-02-02] MEDS ORDERED: FLA500 PO (08:43)
--- NOTE | 2019-02-02 09:03 | NUR ---
ADMINISTERED SCHEDULED MEDS PER MAR PATIENT TOLERATED WELL NO ADVERSE REACTIONS NOTED. ALL NEEDS ATTENDED TO AT THIS TIME. PATIENT DENIES ANY PAIN AT THIS TIME. SAFETY PRECAUTIONS IN PLACE. WILL CONTINUE TO MONITOR.
[2019-02-02 09:11] VITALS: BP 140/83
--- NOTE | 2019-02-02 10:32 | NUR ---
PATIENT C/O 09/23 PAIN IN BACK FROM CHRONIC BACK PAIN. REPOSITIONED PATIENT AND DIMMED LIGHTS. ADMINISTERED NORCO PO PER APR. PATIENT TOLERATED WELL NO ADVERSE REACTIONS NOTED. ALL NEEDS ATTENDED TO AT THIS TIME. BED IN LOW POSITION CALL LIGHT WITHIN REACH. WILL CONTINUE TO MONITOR.
--- NOTE | 2019-02-02 11:22 | NUR ---
BLOOD GLUCOSE 110 NO INSULIN NEEDED PATIENT LYING IN BED DENIES ANY PAIN AT THIS TIME. ALL NEEDS ATTENDED TO. BED IN LOWEST POSITION CALL LIGHT WITHIN REACH. WILL CONTINUE TO MONITOR.
[2019-02-02 13:18] VITALS: BP 145/79
[2019-02-02 14:14] VITALS: BP 145/79
--- NOTE | 2019-02-02 14:37 | NUR ---
Discharge instructions given patient and family verbalized understanding. IV d/c'd catheter intact patient tolerated well. Dressing applied. Patient stable for discharge. All questions and concerns addressed at this time. Will escort patient to lobby.
== END 2019-02-02 14:39 | disposition home or self-care (01) | DRG 391 ==
LOC: ED 21:01 → MU 01-30 02:00 → DU 01-30 03:04 → MU 01-30 03:04
PROVIDERS: Family Medicine; Student in an Organized Health Care Education/Training Program; ADMIT Internal Medicine
DX: K57.20 Diverticulitis of large intestine with perforation and abscess without bleeding (principal); N17.0 Acute kidney failure with tubular necrosis; K74.69 Other cirrhosis of liver; B19.20 Unspecified viral hepatitis C without hepatic coma; K76.0 Fatty (change of) liver, not elsewhere classified; K21.9 Gastro-esophageal reflux disease without esophagitis; I11.9 Hypertensive heart disease without heart failure; I25.10 Atherosclerotic heart disease of native coronary artery without angina pectoris; E11.9 Type 2 diabetes mellitus without complications; J44.9 Chronic obstructive pulmonary disease, unspecified; E03.9 Hypothyroidism, unspecified; M19.90 Unspecified osteoarthritis, unspecified site; F16.21 Hallucinogen dependence, in remission; F14.11 Cocaine abuse, in remission; I25.2 Old myocardial infarction; Z68.31 Body mass index [BMI] 31.0-31.9, adult; Z87.891 Personal history of nicotine dependence; Z79.84 Long term (current) use of oral hypoglycemic drugs; Z87.440 Personal history of urinary (tract) infections
CPT/HCPCS: 82962; 84439; G0378; J0696; J2270; J2405; J2543; J3490; J7030; J7042; J7060; Q0092

== ENCOUNTER 2019-02-10 14:07 | Emergency (ER) | payer OTHER ==
[~2019-02-10] VITALS: Ht 154.9 cm; Wt 75.3 kg
[~2019-02-10 14:07] MED LIST changes: +CIPRO500 MG PO; +TRADJENTA5 M1 PO
[2019-02-10 15:33] VITALS: Ht 154.9 cm; Wt 75.3 kg
[2019-02-10 17:08] LABS: UA SPECIFIC GRAVITY 1.025 (1.005-1.035); microscopic required? YES; urine erythrocyte NEGATIVE (NEGATIVE)
[2019-02-10 17:24] LABS: BASOPHIL % 0.3 % (0-2); PLATELET COUNT 183 x10^3mcL (130-400)
[2019-02-10 17:34] LABS: RED CELL DISTRIBUTION WIDTH 17.1 % (11.5-14.5)
[2019-02-10 17:55] LABS: CALCIUM 9.1 mg/dL (8.5-10.1); CARBON DIOXIDE 28.7 mmol/L (21-32); CREATININE SERUM 2.6 mg/dL (0.6-1.0); POTASSIUM SERUM 3.6 mmol/L (3.5-5.1)
[2019-02-10 17:59] LABS: ALBUMIN 3.7 g/dL (3.4-5.0); BILIRUBIN TOTAL 0.65 mg/dL (0.20-1.00)
[2019-02-10 18:00] LABS: TOTAL PROTEIN, SERUM 8.5 g/dL (6.4-8.2)
[2019-02-10 18:35] VITALS: BP 101/69
== END 2019-02-10 18:35 | disposition home or self-care (01) ==
LOC: ED 14:07
PROVIDERS: Emergency Medicine
DX: K57.32 Diverticulitis of large intestine without perforation or abscess without bleeding (principal); N39.0 Urinary tract infection, site not specified; K74.60 Unspecified cirrhosis of liver; E11.9 Type 2 diabetes mellitus without complications; J45.909 Unspecified asthma, uncomplicated; Z86.79 Personal history of other diseases of the circulatory system; Z86.19 Personal history of other infectious and parasitic diseases; Z98.890 Other specified postprocedural states
CPT/HCPCS: J2270; J2405; J7030

== ENCOUNTER 2019-04-03 12:38 | Emergency (ER) | payer MEDICARE, OTHER ==
[~2019-04-03] VITALS: Ht 154.9 cm; Wt 74.4 kg
[2019-04-03 12:54] VITALS: Ht 154.9 cm; Wt 74.4 kg
[2019-04-03 14:13] LABS: BASOPHIL % 0.4 % (0-2); PLATELET COUNT 154 x10^3mcL (130-400); RED CELL DISTRIBUTION WIDTH 18.8 % (11.5-14.5)
[2019-04-03 14:23] LABS: CALCIUM 8.9 mg/dL (8.5-10.1); CARBON DIOXIDE 26.7 mmol/L (21-32); CREATININE SERUM 1.2 mg/dL (0.6-1.0); POTASSIUM SERUM 3.4 mmol/L (3.5-5.1)
[2019-04-03 14:30] LABS: ALBUMIN 3.5 g/dL (3.4-5.0); BILIRUBIN TOTAL 0.8 mg/dL (0.20-1.00); TOTAL PROTEIN, SERUM 8.2 g/dL (6.4-8.2)
[2019-04-03 17:34] VITALS: BP 108/69
== END 2019-04-03 17:34 | disposition home or self-care (01) ==
LOC: ED 12:38
PROVIDERS: Emergency Medicine
DX: K57.32 Diverticulitis of large intestine without perforation or abscess without bleeding (principal); J44.9 Chronic obstructive pulmonary disease, unspecified; I10 Essential (primary) hypertension; E78.00 Pure hypercholesterolemia, unspecified; E11.9 Type 2 diabetes mellitus without complications; I25.2 Old myocardial infarction; Z90.89 Acquired absence of other organs; Z86.19 Personal history of other infectious and parasitic diseases
CPT/HCPCS: 36415

== ENCOUNTER 2019-04-09 20:07 | Inpatient (IN) | payer OTHER, MEDICARE ==
[~2019-04-09] VITALS: Ht 154.9 cm; Wt 74.8 kg
[2019-04-09 20:15] VITALS: Ht 154.9 cm; Wt 74.8 kg
[2019-04-09 20:52] LABS: BASOPHIL % 0.6 % (0-2); PLATELET COUNT 150 x10^3mcL (130-400); RED CELL DISTRIBUTION WIDTH 18.3 % (11.5-14.5)
[2019-04-09 21:00] LABS: CALCIUM 8.5 mg/dL (8.5-10.1); CARBON DIOXIDE 28.5 mmol/L (21-32); CREATININE SERUM 1.1 mg/dL (0.6-1.0); POTASSIUM SERUM 3.4 mmol/L (3.5-5.1)
[2019-04-09 21:04] LABS: BILIRUBIN TOTAL 0.6 mg/dL (0.20-1.00); TOTAL PROTEIN, SERUM 7.7 g/dL (6.4-8.2)
[2019-04-09 21:07] LABS: ALBUMIN 3.3 g/dL (3.4-5.0)
[2019-04-09 22:45] LABS: microscopic required? NO
[2019-04-09 23:29] LABS: UA SPECIFIC GRAVITY 1.015 (1.005-1.035); urine erythrocyte NEGATIVE (NEGATIVE)
[2019-04-10] MEDS ORDERED: CIPROFLOXACIN500 MG (00:46)
[2019-04-10 01:04] LABS: PHOSPHOROUS 2.8 mg/dL (2.5-4.9)
[2019-04-10 01:05] LABS: CHOLESTEROL/HDL RATIO 2.5
[2019-04-10 01:07] VITALS: BP 141/78
[2019-04-10 01:11] LABS: T3 TOTAL 1.93 ng/mL
[2019-04-10 01:44] LABS: FREE T4 1.24 ng/dL (0.76-1.46); FREE THYROXINE INDEX 3.7 ug/dL (1.4-4.5); T4(THYROXINE) 12.9 ug/dL (4.7-13.3)
[2019-04-10 06:12] VITALS: BP 143/73
[2019-04-10 06:55] LABS: CALCIUM 8.4 mg/dL (8.5-10.1); CREATININE SERUM 1.1 mg/dL (0.6-1.0); PHOSPHOROUS 2.7 mg/dL (2.5-4.9); POTASSIUM SERUM 4.4 mmol/L (3.5-5.1)
[2019-04-10 07:00] LABS: BASOPHIL % 0.3 % (0-2); PLATELET COUNT 131 x10^3mcL (130-400)
[2019-04-10 07:04] LABS: RED CELL DISTRIBUTION WIDTH 18.3 % (11.5-14.5)
[2019-04-10 09:07] VITALS: BP 108/57
[2019-04-10 12:25] VITALS: BP 128/81
[2019-04-10 17:08] VITALS: BP 112/63
[2019-04-10 21:13] VITALS: BP 133/75
[2019-04-11 05:21] VITALS: BP 133/74
[2019-04-11 06:13] LABS: BASOPHIL % 0.3 % (0-2); PLATELET COUNT 138 x10^3mcL (130-400)
[2019-04-11 06:20] LABS: CALCIUM 8.1 mg/dL (8.5-10.1); CREATININE SERUM 1.1 mg/dL (0.6-1.0)
[2019-04-11 06:22] LABS: RED CELL DISTRIBUTION WIDTH 18.1 % (11.5-14.5)
[2019-04-11 08:14] VITALS: BP 142/85
[2019-04-11 12:49] VITALS: BP 135/81
[2019-04-11 17:16] VITALS: BP 143/79
[2019-04-11 19:21] VITALS: BP 126/71
[2019-04-11 21:33] LABS: AMPHETAMINE QUAL UR NONE DETECTED (See below)
[2019-04-12 04:42] VITALS: BP 138/79
[2019-04-12 06:14] LABS: BASOPHIL % 0.3 % (0-2); PLATELET COUNT 137 x10^3mcL (130-400)
[2019-04-12 06:16] LABS: RED CELL DISTRIBUTION WIDTH 18.6 % (11.5-14.5)
[2019-04-12 06:47] LABS: CARBON DIOXIDE 24.9 mmol/L (21-32); POTASSIUM SERUM 3.7 mmol/L (3.5-5.1)
[2019-04-12 07:47] VITALS: BP 136/76
[2019-04-12 11:32] VITALS: BP 137/85
[2019-04-12 16:11] VITALS: BP 130/62
[2019-04-12 20:16] VITALS: BP 133/70
[2019-04-13 05:34] VITALS: BP 132/67
[2019-04-13 06:42] LABS: CALCIUM 8.3 mg/dL (8.5-10.1); CARBON DIOXIDE 26.3 mmol/L (21-32); POTASSIUM SERUM 3.6 mmol/L (3.5-5.1)
[2019-04-13 07:08] LABS: BASOPHIL % 0.3 % (0-2); PLATELET COUNT 131 x10^3mcL (130-400)
[2019-04-13 07:31] LABS: RED CELL DISTRIBUTION WIDTH 18.3 % (11.5-14.5)
[2019-04-13 08:05] VITALS: BP 125/63
[2019-04-13] MEDS ORDERED: FLA500 PO (09:48)
[2019-04-13] MEDS ORDERED: LEVAQUIN500 M1 PO (09:49)
[2019-04-13 10:48] VITALS: BP 125/63
[2019-04-13] MEDS ORDERED: APAP/HYDROCODON1 T13 PO (11:48)
[2019-04-13 12:09] VITALS: BP 140/83
== END 2019-04-13 13:27 | disposition home or self-care (01) | DRG 244 ==
LOC: ED 20:07 → MU 23:34
PROVIDERS: Emergency Medicine; Internal Medicine; ADMIT Family Medicine
DX: K57.20 Diverticulitis of large intestine with perforation and abscess without bleeding (principal); E11.22 Type 2 diabetes mellitus with diabetic chronic kidney disease; J44.9 Chronic obstructive pulmonary disease, unspecified; K57.92 Diverticulitis of intestine, part unspecified, without perforation or abscess without bleeding; E44.1 Mild protein-calorie malnutrition; D64.9 Anemia, unspecified; E03.9 Hypothyroidism, unspecified; E87.6 Hypokalemia; I25.10 Atherosclerotic heart disease of native coronary artery without angina pectoris; K21.9 Gastro-esophageal reflux disease without esophagitis; M19.90 Unspecified osteoarthritis, unspecified site; I12.9 Hypertensive chronic kidney disease with stage 1 through stage 4 chronic kidney disease, or unspecified chronic kidney disease; K74.60 Unspecified cirrhosis of liver; E78.00 Pure hypercholesterolemia, unspecified; M54.31 Sciatica, right side; N18.2 Chronic kidney disease, stage 2 (mild); I25.2 Old myocardial infarction; Z90.49 Acquired absence of other specified parts of digestive tract; Z68.31 Body mass index [BMI] 31.0-31.9, adult; Z90.710 Acquired absence of both cervix and uterus; Z87.891 Personal history of nicotine dependence; Z86.19 Personal history of other infectious and parasitic diseases; Z83.3 Family history of diabetes mellitus; Z82.49 Family history of ischemic heart disease and other diseases of the circulatory system
CPT/HCPCS: 82962; 84439; 97116-GP; G0378; J1200; J1815; J1956; J2270; J2405; J3490; J7030; Q9967

== ENCOUNTER 2019-05-07 18:07 | Inpatient (IN) | payer OTHER, MEDICARE ==
[~2019-05-07] VITALS: Ht 152.4 cm; Wt 72.6 kg
[~2019-05-07 18:07] MED LIST changes: +CIPROFLOXACIN500 MG; +LEVAQUIN500 M1 PO
[2019-05-07 18:23] VITALS: Ht 152.4 cm; Wt 72.6 kg
[2019-05-07 18:58] LABS: BASOPHIL % 0.3 % (0-2); PLATELET COUNT 148 x10^3mcL (130-400); RED CELL DISTRIBUTION WIDTH 16.8 % (11.5-14.5)
[2019-05-07 19:03] LABS: microscopic required? YES; urine erythrocyte NEGATIVE (NEGATIVE)
[2019-05-07 19:06] LABS: CARBON DIOXIDE 27.7 mmol/L (21-32); CREATININE SERUM 1.1 mg/dL (0.6-1.0); POTASSIUM SERUM 4.1 mmol/L (3.5-5.1)
[2019-05-07 19:12] LABS: ALBUMIN 3.5 g/dL (3.4-5.0); BILIRUBIN TOTAL 0.75 mg/dL (0.20-1.00); TOTAL PROTEIN, SERUM 7.9 g/dL (6.4-8.2)
[2019-05-07] MEDS ORDERED: TRADJENTA5 M1 PO (20:30)
[2019-05-07] MEDS ORDERED: ISOSORBIDE DINI30 M2 PO (20:30)
[2019-05-07] MEDS ORDERED: SIMVASTATIN5 M2 PO (20:31)
[2019-05-07] MEDS ORDERED: COLACE100 MG PO (20:32)
[2019-05-07] MEDS ORDERED: D3 20002000 IU PO (20:32)
[2019-05-07 21:23] LABS: CHOLESTEROL/HDL RATIO 3.6
[2019-05-07 21:31] LABS: FREE T4 1.13 ng/dL (0.76-1.46); FREE THYROXINE INDEX 3.8 ug/dL (1.4-4.5); T4(THYROXINE) 13.6 ug/dL (4.7-13.3)
[2019-05-07 21:46] LABS: T3 TOTAL 1.66 ng/mL
[2019-05-07 22:10] VITALS: BP 118/72
[2019-05-08 05:37] VITALS: BP 129/66
[2019-05-08 07:16] LABS: CALCIUM 8.4 mg/dL (8.5-10.1); CARBON DIOXIDE 28.6 mmol/L (21-32); CREATININE SERUM 1.1 mg/dL (0.6-1.0); POTASSIUM SERUM 3.8 mmol/L (3.5-5.1)
[2019-05-08 07:35] LABS: BASOPHIL % 0.3 % (0-2)
[2019-05-08 08:09] LABS: PLATELET COUNT 121 x10^3mcL (130-400); RED CELL DISTRIBUTION WIDTH 17.5 % (11.5-14.5)
[2019-05-08 08:43] VITALS: BP 127/66
[2019-05-08 17:37] VITALS: BP 123/71
[2019-05-08 21:11] VITALS: BP 121/73
[2019-05-09 06:06] VITALS: BP 141/72
[2019-05-09 06:22] LABS: BASOPHIL % 0.2 % (0-2)
[2019-05-09 06:41] LABS: PLATELET COUNT 122 x10^3mcL (130-400); RED CELL DISTRIBUTION WIDTH 16.9 % (11.5-14.5)
[2019-05-09 06:45] LABS: CALCIUM 8.2 mg/dL (8.5-10.1); CARBON DIOXIDE 26.2 mmol/L (21-32); PHOSPHOROUS 3.7 mg/dL (2.5-4.9); POTASSIUM SERUM 4.2 mmol/L (3.5-5.1)
[2019-05-09 08:38] VITALS: BP 125/55
[2019-05-09 12:07] VITALS: BP 149/78
[2019-05-09 16:05] VITALS: BP 110/77
[2019-05-09 21:20] VITALS: BP 155/98
[2019-05-10] VITALS (8 sets, daily range): BP systolic 101–156; BP diastolic 62–84
[2019-05-10 06:50] LABS: BASOPHIL % 0.2 % (0-2); PLATELET COUNT 156 x10^3mcL (130-400)
[2019-05-10 06:55] LABS: RED CELL DISTRIBUTION WIDTH 17.1 % (11.5-14.5)
[2019-05-10 07:02] LABS: CALCIUM 9.2 mg/dL (8.5-10.1); CARBON DIOXIDE 24.9 mmol/L (21-32); CREATININE SERUM 1.1 mg/dL (0.6-1.0)
[2019-05-11 04:32] VITALS: BP 137/81
[2019-05-11 08:00] VITALS: BP 132/83
[2019-05-11 11:37] VITALS: BP 119/69
[2019-05-11 12:34] VITALS: BP 121/74
[2019-05-11 13:50] LABS: PLATELET COUNT 162 x10^3mcL (130-400)
[2019-05-11 13:54] LABS: BASOPHIL % 0 % (0-2); RED CELL DISTRIBUTION WIDTH 16.9 % (11.5-14.5)
[2019-05-11 14:03] LABS: CALCIUM 8.2 mg/dL (8.5-10.1); CARBON DIOXIDE 27.9 mmol/L (21-32); CREATININE SERUM 1.1 mg/dL (0.6-1.0); POTASSIUM SERUM 3.9 mmol/L (3.5-5.1)
[2019-05-11 16:23] VITALS: BP 115/72
[2019-05-11 20:42] VITALS: BP 157/84
[2019-05-12 05:56] VITALS: BP 127/80
[2019-05-12 07:14] LABS: BASOPHIL % 0.2 % (0-2); PLATELET COUNT 133 x10^3mcL (130-400)
[2019-05-12 07:32] LABS: RED CELL DISTRIBUTION WIDTH 17.4 % (11.5-14.5)
[2019-05-12 07:37] LABS: CREATININE SERUM 1.1 mg/dL (0.6-1.0); POTASSIUM SERUM 3.8 mmol/L (3.5-5.1)
[2019-05-12 09:18] VITALS: BP 128/67
[2019-05-12 13:27] VITALS: BP 115/68
[2019-05-12 17:50] VITALS: BP 122/66
[2019-05-12 20:40] VITALS: BP 102/65
[2019-05-13 06:02] VITALS: BP 120/68
[2019-05-13 06:36] LABS: BASOPHIL % 0.2 % (0-2); PLATELET COUNT 132 x10^3mcL (130-400)
[2019-05-13 06:40] LABS: RED CELL DISTRIBUTION WIDTH 17.6 % (11.5-14.5)
[2019-05-13 07:09] LABS: CALCIUM 8.2 mg/dL (8.5-10.1); CARBON DIOXIDE 25.4 mmol/L (21-32); CREATININE SERUM 1.2 mg/dL (0.6-1.0); POTASSIUM SERUM 4.5 mmol/L (3.5-5.1)
[2019-05-13 08:07] VITALS: BP 132/75
[2019-05-13 12:11] VITALS: BP 136/77
[2019-05-13 17:40] VITALS: BP 126/71
[2019-05-13 19:50] VITALS: BP 121/69
[2019-05-14 00:30] VITALS: BP 118/63
[2019-05-14 05:42] VITALS: BP 118/72
[2019-05-14 07:16] LABS: BASOPHIL % 0.3 % (0-2); PLATELET COUNT 148 x10^3mcL (130-400)
[2019-05-14 07:20] LABS: RED CELL DISTRIBUTION WIDTH 17.2 % (11.5-14.5)
[2019-05-14 07:28] LABS: CALCIUM 8.2 mg/dL (8.5-10.1); CARBON DIOXIDE 25.7 mmol/L (21-32); CREATININE SERUM 1.1 mg/dL (0.6-1.0); POTASSIUM SERUM 3.9 mmol/L (3.5-5.1)
[2019-05-14 08:05] VITALS: BP 117/57
[2019-05-14 12:04] VITALS: BP 134/75
[2019-05-14 16:41] VITALS: BP 107/63
[2019-05-14 19:47] VITALS: BP 135/76
[2019-05-15 05:00] VITALS: BP 142/73
[2019-05-15 07:19] LABS: BASOPHIL % 0.2 % (0-2); PLATELET COUNT 157 x10^3mcL (130-400)
[2019-05-15 07:25] LABS: CALCIUM 8.1 mg/dL (8.5-10.1); CARBON DIOXIDE 29.5 mmol/L (21-32); CHLORIDE SERUM 114 mmol/L (98-107); CREATININE SERUM 0.8 mg/dL (0.6-1.0); GFR1 > 60 mL/min; GLUCOSE SERUM 116 mg/dL (74-106); POTASSIUM SERUM 3.8 mmol/L (3.5-5.1); SODIUM SERUM 149 mmol/L (136-145)
[2019-05-15 07:28] LABS: RED CELL DISTRIBUTION WIDTH 16.9 % (11.5-14.5)
[2019-05-15 08:14] VITALS: BP 131/75
[2019-05-15 12:09] VITALS: BP 128/69
[2019-05-15 17:33] VITALS: BP 149/79
[2019-05-15 20:19] VITALS: BP 145/79
[2019-05-16 05:11] VITALS: BP 143/84
[2019-05-16 06:31] LABS: BASOPHIL % 0.2 % (0-2); PLATELET COUNT 161 x10^3mcL (130-400)
[2019-05-16 06:50] LABS: CALCIUM 8.3 mg/dL (8.5-10.1); CARBON DIOXIDE 26.1 mmol/L (21-32); CHLORIDE SERUM 115 mmol/L (98-107); CREATININE SERUM 0.8 mg/dL (0.6-1.0); GFR1 > 60 mL/min; GLUCOSE SERUM 85 mg/dL (74-106); POTASSIUM SERUM 4.1 mmol/L (3.5-5.1); SODIUM SERUM 150 mmol/L (136-145)
[2019-05-16 06:53] LABS: RED CELL DISTRIBUTION WIDTH 16.3 % (11.5-14.5)
[2019-05-16 08:49] VITALS: BP 146/85
[2019-05-16 13:14] VITALS: BP 136/83
[2019-05-16 16:25] VITALS: BP 136/85
[2019-05-16 20:31] VITALS: BP 135/84
[2019-05-17 05:33] VITALS: BP 145/82
[2019-05-17 08:02] VITALS: BP 138/89
[2019-05-17 08:40] LABS: BASOPHIL % 0.1 % (0-2); PLATELET COUNT 200 x10^3mcL (130-400)
[2019-05-17 08:52] LABS: CALCIUM 8.3 mg/dL (8.5-10.1); CARBON DIOXIDE 20.7 mmol/L (21-32); CHLORIDE SERUM 105 mmol/L (98-107); CREATININE SERUM 0.9 mg/dL (0.6-1.0); GFR1 > 60 mL/min; GLUCOSE SERUM 88 mg/dL (74-106); MAGNESIUM 1.5 mg/dL (1.8-2.4); POTASSIUM SERUM 3.7 mmol/L (3.5-5.1); SODIUM SERUM 140 mmol/L (136-145)
[2019-05-17 12:28] VITALS: BP 132/78
[2019-05-17 16:33] VITALS: BP 138/80
[2019-05-17 22:20] VITALS: BP 128/76
[2019-05-18 05:30] VITALS: BP 130/82
[2019-05-18 07:19] LABS: BASOPHIL % 0.2 % (0-2); PLATELET COUNT 186 x10^3mcL (130-400)
[2019-05-18 07:37] LABS: CALCIUM 7.8 mg/dL (8.5-10.1); CARBON DIOXIDE 19.7 mmol/L (21-32); CHLORIDE SERUM 106 mmol/L (98-107); CREATININE SERUM 0.9 mg/dL (0.6-1.0); GFR1 > 60 mL/min; GLUCOSE SERUM 76 mg/dL (74-106); MAGNESIUM 2.3 mg/dL (1.8-2.4); POTASSIUM SERUM 4.4 mmol/L (3.5-5.1); SODIUM SERUM 139 mmol/L (136-145)
[2019-05-18 07:42] LABS: RED CELL DISTRIBUTION WIDTH 16.2 % (11.5-14.5)
[2019-05-18 08:49] VITALS: BP 124/74
[2019-05-18 12:27] VITALS: BP 126/69
[2019-05-18 15:47] VITALS: BP 123/75
[2019-05-18 20:32] VITALS: BP 140/83
[2019-05-19 05:41] VITALS: BP 125/74
[2019-05-19 06:33] LABS: PLATELET COUNT 183 x10^3mcL (130-400)
[2019-05-19 06:34] LABS: BASOPHIL % 0 % (0-2); RED CELL DISTRIBUTION WIDTH 15.3 % (11.5-14.5)
[2019-05-19 06:36] LABS: CALCIUM 7.7 mg/dL (8.5-10.1); CARBON DIOXIDE 22.2 mmol/L (21-32); CHLORIDE SERUM 106 mmol/L (98-107); CREATININE SERUM 0.7 mg/dL (0.6-1.0); GFR1 > 60 mL/min; GLUCOSE SERUM 137 mg/dL (74-106); POTASSIUM SERUM 3.4 mmol/L (3.5-5.1); SODIUM SERUM 138 mmol/L (136-145)
[2019-05-19 07:41] VITALS: BP 128/80
[2019-05-19 11:23] VITALS: BP 107/67
[2019-05-19 15:48] VITALS: BP 131/82
[2019-05-19 19:59] VITALS: BP 125/82
[2019-05-20 05:44] VITALS: BP 125/81
[2019-05-20 06:30] LABS: BASOPHIL % 0.1 % (0-2); PLATELET COUNT 173 x10^3mcL (130-400)
[2019-05-20 06:31] LABS: RED CELL DISTRIBUTION WIDTH 16.3 % (11.5-14.5)
[2019-05-20 07:01] LABS: CALCIUM 8.1 mg/dL (8.5-10.1); CARBON DIOXIDE 22.5 mmol/L (21-32); CHLORIDE SERUM 105 mmol/L (98-107); CREATININE SERUM 0.7 mg/dL (0.6-1.0); GFR1 > 60 mL/min; GLUCOSE SERUM 157 mg/dL (74-106); MAGNESIUM 1.8 mg/dL (1.8-2.4); POTASSIUM SERUM 3.9 mmol/L (3.5-5.1); SODIUM SERUM 135 mmol/L (136-145)
[2019-05-20 07:26] VITALS: BP 138/78
[2019-05-20 11:48] VITALS: BP 128/75
[2019-05-20 15:36] VITALS: BP 121/77
[2019-05-20 21:53] VITALS: BP 135/79
[2019-05-21 05:27] VITALS: BP 132/77
[2019-05-21 06:39] LABS: BASOPHIL % 0.1 % (0-2); PLATELET COUNT 166 x10^3mcL (130-400)
[2019-05-21 06:51] LABS: CALCIUM 7.9 mg/dL (8.5-10.1); CARBON DIOXIDE 23.3 mmol/L (21-32); CHLORIDE SERUM 105 mmol/L (98-107); CREATININE SERUM 0.7 mg/dL (0.6-1.0); GFR1 > 60 mL/min; GLUCOSE SERUM 151 mg/dL (74-106); MAGNESIUM 1.9 mg/dL (1.8-2.4); POTASSIUM SERUM 4.4 mmol/L (3.5-5.1); SODIUM SERUM 137 mmol/L (136-145)
[2019-05-21 06:55] LABS: RED CELL DISTRIBUTION WIDTH 16.5 % (11.5-14.5)
[2019-05-21 08:45] VITALS: BP 116/68
[2019-05-21 11:52] VITALS: BP 117/75
[2019-05-21 17:26] VITALS: BP 113/69
[2019-05-21 19:43] VITALS: BP 119/77
[2019-05-22 00:25] VITALS: BP 137/65
[2019-05-22 05:39] VITALS: BP 118/68
[2019-05-22 06:30] LABS: BASOPHIL % 0.1 % (0-2); PLATELET COUNT 212 x10^3mcL (130-400)
[2019-05-22 06:46] LABS: RED CELL DISTRIBUTION WIDTH 16.9 % (11.5-14.5)
[2019-05-22 06:51] LABS: CALCIUM 8.5 mg/dL (8.5-10.1); CARBON DIOXIDE 22.9 mmol/L (21-32); CHLORIDE SERUM 102 mmol/L (98-107); CREATININE SERUM 0.7 mg/dL (0.6-1.0); GFR1 > 60 mL/min; GLUCOSE SERUM 120 mg/dL (74-106); POTASSIUM SERUM 4.4 mmol/L (3.5-5.1); SODIUM SERUM 135 mmol/L (136-145)
[2019-05-22 08:18] VITALS: BP 12/67
[2019-05-22 11:41] VITALS: BP 109/68
[2019-05-22 16:22] VITALS: BP 126/69
[2019-05-22 19:59] VITALS: BP 117/65
[2019-05-23 05:43] VITALS: BP 129/79
[2019-05-23 08:09] VITALS: BP 114/64
[2019-05-23 11:00] VITALS: BP 105/62
[2019-05-23 12:48] VITALS: BP 112/68
[2019-05-23 16:42] VITALS: BP 113/70
[2019-05-23 19:20] VITALS: BP 104/67
[2019-05-24 00:15] VITALS: BP 117/66
[2019-05-24 05:06] VITALS: BP 94/54
[2019-05-24 06:21] LABS: CALCIUM 8.6 mg/dL (8.5-10.1); CARBON DIOXIDE 26.9 mmol/L (21-32); POTASSIUM SERUM 4.8 mmol/L (3.5-5.1)
[2019-05-24 06:34] LABS: PLATELET COUNT 229 x10^3mcL (130-400)
[2019-05-24 06:44] LABS: BASOPHIL % 0 % (0-2); RED CELL DISTRIBUTION WIDTH 17.2 % (11.5-14.5)
[2019-05-24 08:21] VITALS: BP 111/66
[2019-05-24 12:10] VITALS: BP 97/56
[2019-05-24 15:44] VITALS: BP 99/58
[2019-05-24 19:34] VITALS: BP 101/56
[2019-05-25 05:52] VITALS: BP 116/77
[2019-05-25 08:11] VITALS: BP 124/75
[2019-05-25] MEDS ORDERED: LEVAQUIN500 M1 PO (09:23)
[2019-05-25] MEDS ORDERED: FLAGYL500 MG PO (09:24)
[2019-05-25] MEDS ORDERED: NOR7T PO (09:25)
[2019-05-25 11:43] VITALS: BP 115/71
[2019-05-25 13:37] VITALS: BP 115/71
[2019-05-25 15:31] VITALS: BP 108/74
== END 2019-05-25 15:15 | DRG 230 ==
LOC: ED 18:07 → MU 20:24 → IC 20:24 → DU 20:24 → EDBEDREQ 20:38 → MU 21:48 → IC 05-10 18:20 → MU 05-11 12:10 → DU 05-12 04:42 → MU 05-17 13:45
PROVIDERS: Emergency Medicine; Family Medicine; Internal Medicine; Surgery; ADMIT Internal Medicine
PROC: 0DJD4ZZ Inspection of Lower Intestinal Tract, Percutaneous Endoscopic Approach (ICD-10-PCS; 2019-05-10)
PROC: 0D1B0Z4 Bypass Ileum to Cutaneous, Open Approach (ICD-10-PCS; principal; 2019-05-10 09:00)
PROC: 0JB80ZZ Excision of Abdomen Subcutaneous Tissue and Fascia, Open Approach (ICD-10-PCS; 2019-05-23)
DX: K57.20 Diverticulitis of large intestine with perforation and abscess without bleeding (principal); N17.0 Acute kidney failure with tubular necrosis; A41.9 Sepsis, unspecified organism; T81.41XA Infection following a procedure, superficial incisional surgical site, initial encounter; E11.65 Type 2 diabetes mellitus with hyperglycemia; K21.9 Gastro-esophageal reflux disease without esophagitis; K73.9 Chronic hepatitis, unspecified; K74.60 Unspecified cirrhosis of liver; J44.9 Chronic obstructive pulmonary disease, unspecified; K56.7 Ileus, unspecified; M19.90 Unspecified osteoarthritis, unspecified site; E03.9 Hypothyroidism, unspecified; I25.10 Atherosclerotic heart disease of native coronary artery without angina pectoris; I25.2 Old myocardial infarction; Z68.29 Body mass index [BMI] 29.0-29.9, adult; Z87.891 Personal history of nicotine dependence; Z79.84 Long term (current) use of oral hypoglycemic drugs; E78.00 Pure hypercholesterolemia, unspecified; Z90.49 Acquired absence of other specified parts of digestive tract; Z90.710 Acquired absence of both cervix and uterus; I10 Essential (primary) hypertension; Z83.3 Family history of diabetes mellitus; Z82.49 Family history of ischemic heart disease and other diseases of the circulatory system; Z83.79 Family history of other diseases of the digestive system; Y83.8 Other surgical procedures as the cause of abnormal reaction of the patient, or of later complication, without mention of misadventure at the time of the procedure; Y92.238 Other place in hospital as the place of occurrence of the external cause
CPT/HCPCS: 82962; 83880; 84439; 94150; 97110-GP; 97116-GP; 97530-GP; A4371; A4628; C1751; C9113; G0378; J0330; J1170; J1885; J1956; J2001; J2270; J2405; J2704; J3010; J3475; J3490; J7030; J7042; J7050; J7120; J7131; Q0092; Q0162

== ENCOUNTER 2019-06-02 16:32 | Emergency (ER) | payer MEDICARE, OTHER ==
[~2019-06-02] VITALS: Ht 162.6 cm; Wt 72.6 kg
[~2019-06-02 16:32] MED LIST changes: +COLACE100 MG PO; +D3 20002000 IU PO; +ISOSORBIDE DINI30 M2 PO; +NOR7T PO; +SIMVASTATIN5 M2 PO
[2019-06-02 16:46] VITALS: Ht 162.6 cm; Wt 72.6 kg
[2019-06-02 18:21] VITALS: BP 899/61
== END 2019-06-02 18:21 | disposition home or self-care (01) ==
LOC: ED 16:32
DX: K94.19 Other complications of enterostomy (principal); E11.22 Type 2 diabetes mellitus with diabetic chronic kidney disease; I12.9 Hypertensive chronic kidney disease with stage 1 through stage 4 chronic kidney disease, or unspecified chronic kidney disease; N18.9 Chronic kidney disease, unspecified; J44.9 Chronic obstructive pulmonary disease, unspecified; K21.9 Gastro-esophageal reflux disease without esophagitis; E78.00 Pure hypercholesterolemia, unspecified; M19.90 Unspecified osteoarthritis, unspecified site; F14.90 Cocaine use, unspecified, uncomplicated; Z90.89 Acquired absence of other organs; Z90.49 Acquired absence of other specified parts of digestive tract; Z90.710 Acquired absence of both cervix and uterus; Z72.89 Other problems related to lifestyle; Z86.73 Personal history of transient ischemic attack (TIA), and cerebral infarction without residual deficits

== ENCOUNTER 2019-08-05 21:56 | Emergency (ER) | payer MEDICARE, OTHER ==
[~2019-08-05] VITALS: Ht 154.9 cm; Wt 61.2 kg
[2019-08-05 22:17] VITALS: Ht 154.9 cm; Wt 61.2 kg
[2019-08-05 23:59] VITALS: BP 90/60
== END 2019-08-05 23:59 | disposition home or self-care (01) ==
LOC: ED 21:56
DX: G89.18 Other acute postprocedural pain (principal); R10.31 Right lower quadrant pain; J44.1 Chronic obstructive pulmonary disease with (acute) exacerbation; I10 Essential (primary) hypertension; E11.9 Type 2 diabetes mellitus without complications; E78.00 Pure hypercholesterolemia, unspecified; I25.2 Old myocardial infarction; Z86.19 Personal history of other infectious and parasitic diseases; Z90.710 Acquired absence of both cervix and uterus; Z90.49 Acquired absence of other specified parts of digestive tract; Z90.89 Acquired absence of other organs
CPT/HCPCS: J1885

== ENCOUNTER → 2019-08-09 | Outpatient (CLI) | payer MEDICARE, OTHER | END | disposition home or self-care (01) | LOC: RD 10:46 | PROVIDERS: ATTEND Surgery | DX: K57.00 Diverticulitis of small intestine with perforation and abscess without bleeding (principal) | CPT/HCPCS: Q9967 ==